=== PATIENT | male | born 2005 | race African-American/Black ===

== ENCOUNTER 2025-06-05 23:04 | Emergency (ER) | payer OTHER, SELFPAY ==
[2025-06-05 23:13] VITALS: BP 104/75; PULSE 87; RESP 20; TEMP 36.5; O2SAT 100
[2025-06-06] VITALS (10 sets, daily range): BP systolic 109–115; BP diastolic 70–81; PULSE 69–90; RESP 15–23; O2SAT 100
--- NOTE | 2025-06-06 01:31 | ED.ALCOHOL ---
HPI - Alcohol General Chief Complaint: Alcohol Stated Complaint: ETOH INGESTION Time Seen by Provider: 06/06/25 01:12 History of Present Illness HPI narrative: 19-year-old otherwise healthy male presenting with alcohol intoxication. His roommate took him to the hospital as he was acting intoxicated. Patient drank between 10 and 15 drinks throughout the day. Did not having any need or drink. Did endorse vomiting 1 time. Patient admits to drinking throughout the day and otherwise feels better now that he has waited several hours and becoming more sober. Asking for food and water. Ambulating with a steady gait. Not acting intoxicated and his speech is not slurred. States he has drunk alcohol before but not to this degree. No other complaints. Patient states he feels fine presently. Related Data Allergies Allergy/AdvReac Type Severity Reaction Status Date / Time Unable to Assess Allergy Verified 06/05/25 23:05 Review of Systems Review of Systems: As reviewed above in HPI Exam Narrative: GENERAL: [Well-appearing, well-nourished, and in no acute distress.] HEAD: [Normocephalic, atraumatic.] EYES: [PERRLA and EOMI.] ENT: Nares clear, no rhinorrhea or epistaxis. Mucous membranes moist. NECK: Supple. CHEST: [Clear to auscultation. No respiratory distress.] HEART: [Regular rate and rhythm]. No murmur heard. [Normal peripheral pulses.] ABDOMEN: [Soft, nondistended], [nontender], [No rigidity or guarding] EXTREMITIES: Normal range of motion. [No edema.] SKIN: Warm, dry, no rash. NEURO: No focal deficits. Alert and oriented x3 Ambulatory with a steady gait. No ataxia or strength deficits. PSYCH: [Normal mood and affect.] Course Vital Signs Vital signs: Vital Signs Temperature 36.5 C 06/05/25 23:13 Pulse Rate 87 06/05/25 23:13 Respiratory Rate 20 06/05/25 23:13 Blood Pressure 104/75 06/05/25 23:13 Pulse Oximetry 100 06/05/25 23:13 Oxygen Delivery Room Air 06/05/25 23:13 Temperature 36.5 C 06/05/25 23:13 Pulse Rate 87 06/06/25 01:45 Respiratory Rate 20 06/06/25 01:45 Blood Pressure 110/73 06/06/25 01:31 Pulse Oximetry 100 06/06/25 01:16 Oxygen Delivery Room Air 06/05/25 23:13 MDM - Alcohol MDM Narrative Medical decision making narrative: 19-year-old otherwise healthy male presenting with alcohol intoxication. His roommate took him to the hospital as he was acting intoxicated. Patient drank between 10 and 15 drinks throughout the day. Did not having any need or drink. Did endorse vomiting 1 time. Patient admits to drinking throughout the day and otherwise feels better now that he has waited several hours and becoming more sober. Asking for food and water. Ambulating with a steady gait. Not acting intoxicated and his speech is not slurred. States he has drunk alcohol before but not to this degree. No other complaints. Patient states he feels fine presently. Patient has normal vital signs here and clinically more sober now than previously described. Patient states he feels better and wants something eat and drink. POC glucose 73. Roommates are sober and able to drive him home. Patient p.o. challenged with oral intake and he tolerated without any vomiting. Prescription for Zofran given if needed and safe for discharge home at this time for further sobriety in the comfort of his home. Medical Records Attestation: I reviewed the patient's medical records. Lab Data Attestation: I reviewed the patient's lab results. Labs: Lab Results 06/05/25 Range/Units 23:09 POC Capillary Glucose 73 (65-105) mg/dl Discharge Plan Discharge Clinical Impression: Alcoholic intoxication Patient Disposition: Home Condition: Stable Instructions: Antibiotic Form, Alcohol Intoxication (ED) Additional Instructions: Signs and symptoms of alcohol intoxication which gets better as he metabolized the ethanol which takes approximately 1 drink per hour to metabolize fully. Tylenol ibuprofen for aches or pains. Return with any emergent concerns. Prescription for Zofran sent if you need some for any residual nausea Patient Language: [place] Prescriptions: New ondansetron 4 mg tablet,disintegrating 4 mg PO Q8H PRN (Reason: nausea and vomiting) Qty: 10 0RF Follow-up/Referrals: UNKNOWN,DOCTOR [Primary Care Provider] Time of Disposition: 01:30
== END 2025-06-06 01:52 | disposition home or self-care (01) ==
LOC: ANHED 06-06 01:46
PROVIDERS: Emergency Provider Student in an Organized Health Care Education/Training Program
DX: F10.129 Alcohol abuse with intoxication, unspecified (principal); Y90.9 Presence of alcohol in blood, level not specified
CPT/HCPCS: 82948; 99283